=== PATIENT | female | born 1975 | race Caucasian/White ===

== ENCOUNTER 2022-06-30 15:37 | Emergency (ER) | payer OTHER ==
[~2022-06-30] VITALS: Ht 157 cm; Wt 68.0 kg
--- NOTE | 2022-06-30 15:59 | ED General ---
General Stated Complaint: RESPONSIVE PAIN Source of Information: Patient Exam Limitations: No Limitations History of Present Illness Date Seen by Provider: Jun 30, 2022 Time Seen by Provider: 15:56 Initial Comments Patient is a 47-year-old female with a history of lung cancer, PE presents the ED for heat exhaustion. Patient has been working outside. Works for [employer]. Spent most of the morning and afternoon outside. She felt sick right before lunch she vomited with some diarrhea. She started to get overheated weak dizzy went into the car and supposedly passed out in the car. Significant other took patient to [facility] and patient was only responsive to pain not moving her extremities. On arrival she is alert and oriented x3 but sluggish and slow to respond. She is easily arousable and does answer questions at a slower pace. She states she feels weak and fatigued. She denies of any chest pain, abdominal pain, headache, visual changes. She was given a liter of fluid by EMS. According to she has been drinking fluids Allergies and Home Medications Allergies Coded Allergies: bismuth subsalicylate (Unverified Allergy, Mild, Vomiting, 06/30/22) tramadol (Unverified Allergy, Mild, Vomiting, 06/30/22) Patient Home Medication List Home Medication List Reviewed: Yes Review of Systems Review of Systems Constitutional: No diaphoresis; malaise EENTM: No blurred vision, No hoarseness, No mouth pain, No mouth swelling Respiratory: No cough, No short of breath Cardiovascular: No chest pain Gastrointestinal: No abdominal pain; diarrhea, nausea, vomiting Genitourinary: No decreased output, No discharge Musculoskeletal: No back pain, No joint pain Skin: No change in color, No change in hair/nails All Other Systems Reviewed Negative Unless Noted: Yes Physical Exam Vital Signs Vital Signs - First Documented 06/30/22 15:40 Temp 36.9 Pulse 78 Resp 18 B/P (MAP) 118/78 (91) Pulse Ox 99 O2 Delivery Room Air Capillary Refill : Height, Weight, BMI Height: '" Weight: lbs. oz. kg; BMI Method: General Appearance: Mild Distress, Other (Sluggish.) Eyes: Bilateral Eye Normal Inspection, Bilateral Eye PERRL, Bilateral Eye EOMI HEENT: PERRL/EOMI, TMs Normal, Normal ENT Inspection, Pharynx Normal Neck: Full Range of Motion, Normal Inspection, Non Tender, Supple Respiratory: Chest Non Tender, Lungs Clear, Normal Breath Sounds, No Accessory Muscle Use, No Respiratory Distress Cardiovascular: Regular Rate, Rhythm, No Edema, No Gallop, No JVD, No Murmur Gastrointestinal: Normal Bowel Sounds, No Organomegaly, No Pulsatile Mass, Non Tender Extremity: Normal Capillary Refill, Normal Inspection, Normal Range of Motion, Non Tender, No Calf Tenderness Neurologic/Psychiatric: Alert, Oriented x3 Skin: Normal Color, Warm/Dry Focused Exam Lactate Level 06/30/22 16:00: Lactic Acid Level 0.96 Lactic Acid Level Laboratory Tests Test 06/30/22 16:00 Lactic Acid Level 0.96 MMOL/L (0.50-2.00) Progress/Results/Core Measures Suspected Sepsis SIRS Temperature: Pulse: Respiratory Rate: Laboratory Tests 06/30/22 15:55: White Blood Count 6.0 Blood Pressure / Mean: 06/30/22 16:00: Lactic Acid Level 0.96 Laboratory Tests 06/30/22 15:55: Creatinine 1.48H, INR Comment 1.3, Platelet Count 298, Total Bilirubin 0.5 Results/Orders Lab Results Laboratory Tests Test 06/30/22 15:55 06/30/22 16:00 Range/Units White Blood Count 6.0 4.3-11.0 10^3/uL Red Blood Count 4.21 3.80-5.11 10^6/uL Hemoglobin 12.7 11.5-16.0 g/dL Hematocrit 38 35-52 % Mean Corpuscular Volume 89 80-99 fL Mean Corpuscular Hemoglobin 30 25-34 pg Mean Corpuscular Hemoglobin Concent 34 32-36 g/dL Red Cell Distribution Width 13.1 10.0-14.5 % Platelet Count 298 130-400 10^3/uL Mean Platelet Volume 10.6 9.0-12.2 fL Immature Granulocyte % (Auto) 0 % Neutrophils (%) (Auto) 73 42-75 % Lymphocytes (%) (Auto) 17 12-44 % Monocytes (%) (Auto) 9 0-12 % Eosinophils (%) (Auto) 1 0-10 % Basophils (%) (Auto) 0 0-10 % Neutrophils # (Auto) 4.4 1.8-7.8 X 10^3 Lymphocytes # (Auto) 1.0 1.0-4.0 X 10^3 Monocytes # (Auto) 0.5 0.0-1.0 X 10^3 Eosinophils # (Auto) 0.1 0.0-0.3 10^3/uL Basophils # (Auto) 0.0 0.0-0.1 10^3/uL Immature Granulocyte # (Auto) 0.0 0.0-0.1 10^3/uL Prothrombin Time 16.5 H 12.2-14.7 SEC INR Comment 1.3 0.8-1.4 Activated Partial Thromboplast Time 34 24-35 SEC Sodium Level 139 135-145 MMOL/L Potassium Level 4.0 3.6-5.0 MMOL/L Chloride Level 106 98-107 MMOL/L Carbon Dioxide Level 26 21-32 MMOL/L Anion Gap 7 5-14 MMOL/L Blood Urea Nitrogen 16 7-18 MG/DL Creatinine 1.48 H 0.60-1.30 MG/DL Estimat Glomerular Filtration Rate 44 BUN/Creatinine Ratio 11 Glucose Level 86 70-105 MG/DL Calcium Level 9.3 8.5-10.1 MG/DL Corrected Calcium 9.1 8.5-10.1 MG/DL Magnesium Level 1.9 1.6-2.4 MG/DL Total Bilirubin 0.5 0.1-1.0 MG/DL Aspartate Amino Transf (AST/SGOT) 19 5-34 U/L Alanine Aminotransferase (ALT/SGPT) 19 0-55 U/L Alkaline Phosphatase 96 40-136 U/L Total Creatine Kinase 86 29-168 U/L Troponin I < 0.028 <0.028 NG/ML Total Protein 6.8 6.4-8.2 GM/DL Albumin 4.2 3.2-4.5 GM/DL Lactic Acid Level 0.96 0.50-2.00 MMOL/L My Orders Orders - JUSTINE CEBALLOS Cbc With Automated Diff (06/30/22 15:53) Comprehensive Metabolic Panel (06/30/22 15:53) Partial Thromboplastin Time (06/30/22 15:53) Protime With Inr (06/30/22 15:53) Troponin I [place] (06/30/22 15:53) Ekg Tracing (06/30/22 15:53) Creatine Kinase (06/30/22 15:53) Urinalysis (06/30/22 15:53) Ct Head Wo (06/30/22 15:53) Lactic Acid Analyzer (06/30/22 15:53) Chest 1 View, Ap/Pa Only (06/30/22 15:53) Magnesium (06/30/22 15:53) Ns Iv 1000 Ml (Sodium Chloride 0.9%) (06/30/22 16:36) Vital Signs/I&O 06/30/22 06/30/22 15:40 18:05 Temp 36.9 36.8 Pulse 78 73 Resp 18 20 B/P (MAP) 118/78 (91) 97/55 Pulse Ox 99 98 O2 Delivery Room Air Room Air Capillary Refill : ECG Comment Sinus rhythm, 70 bpm, QRS duration 72 MS, QTc 445 MS, Departure Communication (PCP) Patient sluggish on arrival. Was able to respond to questions, pain. Alert and orient x3. CT scan the head was unremarkable. Patient was not febrile with a core temperature. EKG showed sinus rhythm. Lab work was otherwise unremarkable besides a creatinine of 1.48 GFR 44. Was given a liter of fluid by EMS as well as a second liter here in the ED. Patient symptoms continue improved. She has been working out in the heat likely resulted in patient's current complaints. This appears to be more of a heat exhaustion at this time. She is neurol ogically intact. No delirium, coma, seizure or signs of a potential stroke. She is moving all extremities. Patient with a steady gait here in the ED. Provided work note for the rest week. Recommend staying hydrated. If any worsening symptoms return back to ED for further evaluation Impression Primary Impression: Heat exhaustion Disposition: 01 HOME, SELF-CARE Condition: Stable Departure-Patient Inst. Decision time for Depature: 17:07 Referrals: [facility] (PCP/Family) Primary Care Physician Patient Instructions: Heat Exhaustion and Heat Stroke (DC) Work/School Note: Work Release Form Date Seen in the Emergency Department: Jun 30, 2022 Return to Work: Jul 04, 2022 JUSTINE CEBALLOS Jun 30, 2022 15:59
[2022-06-30 16:05] LABS: BASOPHILS % (AUTO) 0 % (0-10); EOSINOPHILS # (AUTO) 0.1 10^3/uL (0.0-0.3); EOSINOPHILS % (AUTO) 1 % (0-10); HEMATOCRIT 38 % (35-52); HEMOGLOBIN 12.7 g/dL (11.5-16.0); LYMPHOCYTES % (AUTO) 17 % (12-44); MEAN CORPUSCULAR HEMOGLOBIN 30 pg (25-34); MEAN CORPUSCULAR HGB CONC 34 g/dL (32-36); MEAN CORPUSCULAR VOLUME 89 fL (80-99); MEAN PLATELET VOLUME 10.6 fL (9.0-12.2); MONOCYTES # (AUTO) 0.5 X 10^3 (0.0-1.0); MONOCYTES % (AUTO) 9 % (0-12); NEUTROPHILS # (AUTO) 4.4 X 10^3 (1.8-7.8); NEUTROPHILS % (AUTO) 73 % (42-75); PLATELET COUNT 298 10^3/uL (130-400)
[2022-06-30 16:26] LABS: ALBUMIN 4.2 GM/DL (3.2-4.5); CHLORIDE 106 MMOL/L (98-107); SODIUM 139 MMOL/L (135-145)
[2022-06-30 16:27] LABS: CALCIUM 9.3 MG/DL (8.5-10.1)
[2022-06-30 16:28] LABS: GLUCOSE 86 MG/DL (70-105)
[2022-06-30 16:29] LABS: TOTAL PROTEIN 6.8 GM/DL (6.4-8.2)
[2022-06-30 16:30] LABS: BILIRUBIN,TOTAL 0.5 MG/DL (0.1-1.0); CARBON DIOXIDE 26 MMOL/L (21-32)
[2022-06-30 16:31] LABS: INR 1.3 (0.8-1.4); PROTHROMBIN TIME PATIENT 16.5 SEC (12.2-14.7)
[2022-06-30 16:32] LABS: ALKALINE PHOSPHATASE 96 U/L (40-136); CREATININE SERUM 1.48 MG/DL (0.60-1.30); GFR ESTIMATED 44
[2022-06-30 16:33] LABS: BUN/CREATININE RATIO 11
[2022-06-30 16:35] LABS: ALANINE AMINOTRANSFERASE 19 U/L (0-55); MAGNESIUM 1.9 MG/DL (1.6-2.4)
[2022-06-30 16:36] LABS: CREATINE KINASE 86 U/L (29-168)
[2022-06-30] MEDS ORDERED: NS IV 1000 ML 1,000 ML IV STA (16:36)
--- NOTE | 2022-06-30 16:43 | Diagnostic Imaging Report ---
PROCEDURE: CT head without contrast. TECHNIQUE: Multiple contiguous axial images were obtained through the brain without the use of intravenous contrast. Auto Exposure Controls were utilized during the CT exam to meet ALARA standards for radiation dose reduction. INDICATION: Heat stroke. FINDINGS: There is no intracranial hemorrhage, hydrocephalus, cerebral edema, mass, mass effect, nor evidence for elevated intracerebral pressures. The basilar cisterns are patent, and there is no sulcal effacement. The martinez-white matter differentiations are maintained. Orbits, sinuses, and calvarium are nonacute. IMPRESSION: No hemorrhage, edema, or acute appearing abnormalities. Dictated by: Dictated on workstation # [id number]
--- NOTE | 2022-06-30 16:44 | Diagnostic Imaging Report ---
INDICATION: Weakness and vomiting and altered mental status. Frontal chest obtained at 4:41 p.m. FINDINGS: Heart and mediastinal silhouette are normal in appearance. The lungs are clear. There is no pneumothorax or pleural fluid. IMPRESSION: Negative chest. Dictated by: Dictated on workstation # [id number]
[2022-06-30 18:05] VITALS: BP 97/55
== END 2022-06-30 18:11 | disposition home or self-care (01) ==
LOC: ER 15:37
DX: T67.5XXA Heat exhaustion, unspecified, initial encounter (principal)
CPT/HCPCS: 36415; 70450; 71045; 80053; 82550; 83605; 83735; 84484; 85025; 85610; 85730; 93005